=== PATIENT | female | born 1990 | race Caucasian/White ===

== ENCOUNTER 2016-07-25 06:50 | Inpatient (IN) | payer OTHER ==
[2016-07-25] VITALS (21 sets, daily range): BP systolic 107–131; BP diastolic 57–81
[~2016-07-25] VITALS: Ht 165.1 cm; Wt 84.8 kg
[~2016-07-25 06:50] MED LIST: ALBUTEROL SULF8.5 GM IH; BENTYL20 MG PO; NAPROSYN500 MG PO; PREDNISONE20 MG PO; VELIVET1 EACH PO; ZITHROMAX Z-PA250 MG PO
[2016-07-25] MEDS ORDERED: PRENATAL TABLE1 EAC3 PO (07:38)
[2016-07-25] MEDS ORDERED: VITAMIN D31000 UNI2 PO (07:39)
[2016-07-25] MEDS ORDERED: CLARITIN,ALAVAR10 MG PO (07:40)
[2016-07-25 09:57] LABS: EOSINOPHIL (%) 0.9 % (0-5); EOSINOPHIL COUNT 0.1 K/uL (0-0.3); HEMATOCRIT 31.5 % (36.0-46.0); IMMATURE GRANULOCYTE (%) 0.4 % (0.0-0.7); LYMPHOCYTE COUNT 2.1 K/uL (1.0-2.8); MCHC 33.7 G/DL (30.0-36.0); MCV 86.3 FL (83-99); MEAN PLAT.VOLUME 11.4 uM^3 (9.5-12.4); MONOCYTE (%) 6.7 % (3-12); MONOCYTE COUNT 0.7 K/uL (0-0.8); NEUTROPHIL (%) 70.6 % (45-76); NEUTROPHIL COUNT 7.1 K/uL (1.8-6.4); PLATELET COUNT 346 K/uL (156-360); RBC DIS.WIDTH-CV 14.3 % (11.8-14.6); RBC DIS.WIDTH-SD 44.7 % (39-53); RED BLOOD COUNT 3.65 M/uL (3.80-5.20); WHITE BLOOD COUNT 10.1 K/uL (4.1-10.2)
[2016-07-26] VITALS (28 sets, daily range): BP systolic 110–139; BP diastolic 55–78
[2016-07-27 07:35] LABS: BASOPHIL COUNT 0.1 K/uL (0-0.1); EOSINOPHIL (%) 0.9 % (0-5); EOSINOPHIL COUNT 0.2 K/uL (0-0.3); HEMATOCRIT 26.6 % (36.0-46.0); IMMATURE GRANULOCYTE (%) 0.6 % (0.0-0.7); IMMATURE GRANULOCYTE COUNT 0.1 K/uL; LYMPHOCYTE COUNT 3.3 K/uL (1.0-2.8); MCHC 33.8 G/DL (30.0-36.0); MCV 85.8 FL (83-99); MEAN PLAT.VOLUME 11.2 uM^3 (9.5-12.4); MONOCYTE (%) 7.9 % (3-12); MONOCYTE COUNT 1.9 K/uL (0-0.8); NEUTROPHIL (%) 76.5 % (45-76); NEUTROPHIL COUNT 18.2 K/uL (1.8-6.4); PLATELET COUNT 273 K/uL (156-360); RBC DIS.WIDTH-CV 14.5 % (11.8-14.6); RBC DIS.WIDTH-SD 44.8 % (39-53)
[2016-07-27 07:38] LABS: WHITE BLOOD COUNT 23.7 K/uL (4.1-10.2)
[2016-07-27 22:37] VITALS: BP 115/63
[2016-07-28 06:51] LABS: EOSINOPHIL (%) 2.6 % (0-5); EOSINOPHIL COUNT 0.4 K/uL (0-0.3); HEMATOCRIT 25.5 % (36.0-46.0); IMMATURE GRANULOCYTE (%) 0.5 % (0.0-0.7); IMMATURE GRANULOCYTE COUNT 0.1 K/uL; LYMPHOCYTE COUNT 3.2 K/uL (1.0-2.8); MCH 28.6 PG (29.0-34.0); MCHC 32.9 G/DL (30.0-36.0); MCV 86.7 FL (83-99); MEAN PLAT.VOLUME 11.2 uM^3 (9.5-12.4); MONOCYTE (%) 6.6 % (3-12); NEUTROPHIL (%) 68.1 % (45-76); PLATELET COUNT 259 K/uL (156-360); RBC DIS.WIDTH-CV 14.6 % (11.8-14.6); RBC DIS.WIDTH-SD 46.1 % (39-53); RED BLOOD COUNT 2.94 M/uL (3.80-5.20)
[2016-07-28 06:53] LABS: WHITE BLOOD COUNT 14.7 K/uL (4.1-10.2)
[2016-07-28 07:42] VITALS: BP 120/80
[2016-07-28 15:37] VITALS: BP 120/65
== END 2016-07-28 17:42 | disposition home or self-care (01) | DRG 767 ==
LOC: LDRP-OP 06:50 → 2WEST 06:51 → LDRP-OP 08-24 14:41
PROVIDERS: Advanced Practice Midwife; Obstetrics & Gynecology
DX: O73.0 Retained placenta without hemorrhage (principal); O70.1 Second degree perineal laceration during delivery; O63.1 Prolonged second stage (of labor); O77.0 Labor and delivery complicated by meconium in amniotic fluid; O74.5 Spinal and epidural anesthesia-induced headache during labor and delivery; O48.0 Post-term pregnancy; O99.354 Diseases of the nervous system complicating childbirth; G43.909 Migraine, unspecified, not intractable, without status migrainosus; O98.52 Other viral diseases complicating childbirth; B08.1 Molluscum contagiosum; O99.02 Anemia complicating childbirth; D62 Acute posthemorrhagic anemia; O99.284 Endocrine, nutritional and metabolic diseases complicating childbirth; E55.9 Vitamin D deficiency, unspecified; O99.52 Diseases of the respiratory system complicating childbirth; J45.909 Unspecified asthma, uncomplicated; Z37.0 Single live birth; Z3A.40 40 weeks gestation of pregnancy
CPT/HCPCS: 85025; 87070; 87075; 87205; 88307; 99202; C1755; J2405; J3010; J7120